=== PATIENT | male | born 1985 | race Caucasian/White ===

== ENCOUNTER 2020-01-28 12:54 | Inpatient (IN) | payer MEDICAID ==
[~2020-01-28] VITALS: Ht 177.8 cm; Wt 88.5 kg
[2020-01-28 13:45] VITALS: BP 102/71; BP 110/68
--- NOTE | 2020-01-28 13:45 | NUR ---
The assessment has been completed. WALE IVORY Time: 1345 A 35 year old MALE admitted to under services of CANDIDO SHIELDS DO. Pt. arrived via ambulatory from [place]. Chief complaint: OPIOID WITHDRAWAL. WALE IVORY
--- NOTE | 2020-01-28 14:01 | NUR ---
PATIENT MEETS [facility]=[id number]. PATIENT IS WANTING TO FOLLOW UP WITH [facility] FOR HIS AFTERCARE PLAN. 

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
[2020-01-28 14:31] LABS: BILIRUBIN NEGATIVE; BLOOD NEGATIVE (NEGATIVE); CLARITY CLEAR (CLEAR); COLOR YELLOW (YELLOW); GLUCOSE NEGATIVE; KETONE NEGATIVE; NITRITE NEGATIVE (NEGATIVE); PH > 9.0 (4.5-8.0)
[2020-01-28 14:32] LABS: BACTERIA TRACE; LEUKO ESTERASE NEGATIVE (NEGATIVE); RBC 0-2 rbc/hpf (0-2); WBC 0-2 wbc/hpf (0-5)
[2020-01-28 14:38] LABS: BASO % 0.3 % (0.0-1.0); EOS % 0.5 % (1.0-4.0); HEMATOCRIT 46.4 % (42.0-52.0); LYMPH # 1.2 10*3/uL (1.3-4.4); LYMPH % 15.8 % (27.0-41.0); MEAN CELL VOLUME 88.2 fl (80.0-94.0); MEAN CORPUSCULAR HGB 28.9 pg (27.0-31.0); MEAN CORPUSCULAR HGB CONC 32.8 g/dl (33.0-37.0); MEAN PLATELET VOLUME 10.3 fl (9.6-12.3); MONO # 0.5 10*3/uL (0.1-1.0); MONO % 5.8 % (3.0-9.0); NEUT % 77.3 % (47.0-73.0); PLATELET COUNT AUTOMATED 284 10*3/uL (130-400); RED BLOOD COUNT 5.26 10*6/uL (4.50-5.90); RED CELL DISTRI WIDTH 13.1 % (0-14.5); WHITE BLOOD COUNT 7.7 10*3/uL (4.8-10.8)
[2020-01-28 15:02] LABS: ALKALINE PHOSPHATASE 58 U/L (45-117); BUN 6 mg/dl (7-24); CHLORIDE 107 mmol/L (98-107); CREATININE 0.73 mg/dL (0.70-1.30); POTASSIUM 3.6 mmol/L (3.5-5.1); SGOT/AST 7 IU/L (3-35); SGPT/ALT 15 U/L (12-78); SODIUM 138 mmol/L (136-145); TOTAL PROTEIN 8.8 gm/dL (6.4-8.2)
[2020-01-28 15:04] LABS: ETHYL ALCOHOL < 3.0 mg/dl (<3)
[2020-01-28 15:11] LABS: URINE AMPHETAMINES < 1000 (1000ng/ml); URINE BARBITURATES < 200 (200ng/ml); URINE BENZODIAZEPINES < 200 (200ng/ml); URINE CANNABINOIDS (THC) < 50 (50ng/ml); URINE COCAINE < 300 (300ng/ml); URINE METHADONE < 300 (300ng/ml); URINE OPIATES < 300 (300ng/ml)
--- NOTE | 2020-01-28 15:20 | NUR ---
MEDICATIONS EFFECTIVE PER PT
[2020-01-28 15:21] LABS: URINE PHENCYCLIDINE < 25 (25ng/ml)
[2020-01-28 16:00] VITALS: BP 114/69
--- NOTE | 2020-01-28 16:15 | NUR ---
Patient displaying withdrawal symptoms, including: achiness, anxiousness, restlessness and agitation, tremors. Patient scores a 6 on the withdrawal scale. Scheduled/PRN medications Benadryl, Motrin & Bentyl provided. Will continue to monitor medication effectiveness.
--- NOTE | 2020-01-28 17:15 | NUR ---
PT STATES MEDICATIONS WERE MOSTLY EFFECTIVE. WILL CONTINUE TO MONITOR.
--- NOTE | 2020-01-28 19:30 | NUR ---
PATIENT SLEEPING AT THIS TIME, EYS CLSOED. NO OVERT DISTRESS NOTED. RESP ARE EASY AND REGULAR. BED IS LOCKED IN LOWEST POSITIONS, CALL LIGHT WITHIN REACH
[2020-01-28 20:00] VITALS: BP 108/88; BP 95/53
--- NOTE | 2020-01-28 21:16 | NUR ---
PATIENT MEDICATED WITH COMFORT MEDS, SEE EMAR, FOR C/O OF WITHDRAWAL SYMPTOMS. WILL CONTINUE TO MONITOR
--- NOTE | 2020-01-28 22:16 | NUR ---
COMFORT MEDS EFFECTIVE
[2020-01-29] VITALS: BP 109/61
--- NOTE | 2020-01-29 02:14 | NUR ---
PATIENT VOICED NO COMPLAINTS AT THIS TIME.
--- NOTE | 2020-01-29 06:23 | NUR ---
PATIENT MEDICATED WITH COMFORT MEDS, SEE EMAR, FOR WITHDRAWAL SYMPTOMS. WILL MONITOR
[2020-01-29 08:00] VITALS: BP 100/62
[2020-01-29 12:00] VITALS: BP 96/67
--- NOTE | 2020-01-29 13:49 | NUR ---
LIBRIUM 25 MG GIVEN FOR C/O ANXIETY, RESTLESSNESS.
--- NOTE | 2020-01-29 15:59 | NUR ---
[facility] STAFF IN TO SEE PATIENT. PATIENT'S AFTERCARE PLAN REMAINS THE SAME. 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
[2020-01-29 16:00] VITALS: BP 105/66
--- NOTE | 2020-01-29 16:04 | NUR ---
ROBAXIN 750 MG, BENTYL 20 MG GIVEN FOR PT C/O ANXIETY, RESTLESS LEGS, AND STOMACH UPSET.
--- NOTE | 2020-01-29 18:35 | NUR ---
VISTARIL AND MOTRIN GIVEN PER MAR FOR C/O GENERALIZED PAIN TO BLE AND ANXIETY.
--- NOTE | 2020-01-29 19:47 | NUR ---
PATIENT RESTING IN BED WITH EYES CLOSED. ARROUSES EASILY. DENIES NEEDS AT THIS TIME. REMINDED TO NOT LEAVE THE FLOOR. BED IN LOWEST POSITION, CALL TORREY CONNOLLY
[2020-01-29 20:00] VITALS: BP 103/64
[2020-01-30] VITALS: BP 104/58
--- NOTE | 2020-01-30 00:01 | NUR ---
MEDICATED WITH PRN TRAZADONE FOR C/O SLEEPLESSNESS. WILL MONITOR
--- NOTE | 2020-01-30 01:00 | NUR ---
PATIENT RESTING IN BED WITH EYES CLOSED. MEDICATION SEEMS EFFECTIVE
[2020-01-30 08:00] VITALS: BP 114/58
--- NOTE | 2020-01-30 08:37 | NUR ---
MOTRIN AND BENTYL GIVEN PER PT REQUEST.
[2020-01-30 12:00] VITALS: BP 114/54
--- NOTE | 2020-01-30 13:00 | NUR ---
[facility] STAFF IN TO SEE PATIENT. PATIENT IS GOING TO FOLLOW UP WITH [facility] FOR OUTPATIENT TREATMENT ON MONDAY, . PATIENT AGREES AND UNDERSTANDS HIS AFTERCARE PLAN. 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
--- NOTE | 2020-01-30 14:46 | NUR ---
ROBAXIN 750 MG GIVEN FOR C/O RESTLESS LEGS.
[2020-01-30 16:00] VITALS: BP 100/53
--- NOTE | 2020-01-30 17:51 | NUR ---
MOTRIN AND BENTYL GIVEN PER PT REQUEST.
--- NOTE | 2020-01-30 19:46 | NUR ---
PATIENT RESTING IN BED SLEEPING. ARROUSES EASILY. DENIES NEEDS. REMINDED NOT TO LEAVE THE FLOOR, VERBALIZED UNDERSTANDING. BED IN LOWEST POSITION, CALL LIGHT IN REACH
[2020-01-30 20:00] VITALS: BP 110/63
--- NOTE | 2020-01-30 22:45 | NUR ---
MEDICATED WITH PRN TRAZADONE FOR C/O SLEEPLESSNESS. WILL MONITOR
--- NOTE | 2020-01-30 23:45 | NUR ---
PATIENT RESTING IN BED WITH EYES CLOSED. MEDICATION SEEMS EFFECTIVE
[2020-01-31] VITALS: BP 108/50
--- NOTE | 2020-01-31 06:53 | NUR ---
IV HEP LOCK REMOVED WITH CATHETER INTACT. NO BLEEDING NOTED
[2020-01-31 06:55] LABS: BASO % 0.5 % (0.0-1.0); EOS # 0.2 10*3/uL (0.0-0.4); EOS % 3.1 % (1.0-4.0); HEMATOCRIT 43.7 % (42.0-52.0); LYMPH # 2.9 10*3/uL (1.3-4.4); LYMPH % 50.3 % (27.0-41.0); MEAN CELL VOLUME 89.2 fl (80.0-94.0); MEAN CORPUSCULAR HGB CONC 32.5 g/dl (33.0-37.0); MEAN PLATELET VOLUME 10.3 fl (9.6-12.3); MONO # 0.4 10*3/uL (0.1-1.0); MONO % 7.1 % (3.0-9.0); NEUT # 2.3 10*3/uL (2.3-7.9); PLATELET COUNT AUTOMATED 251 10*3/uL (130-400); RED CELL DISTRI WIDTH 13.5 % (0-14.5); WHITE BLOOD COUNT 5.8 10*3/uL (4.8-10.8)
[2020-01-31 07:14] LABS: CREATININE 0.75 mg/dL (0.70-1.30)
[2020-01-31 08:00] VITALS: BP 119/74
[2020-01-31] MEDS ORDERED: MOTRIN 600 MG E4 TAB PO (10:17)
[2020-01-31] MEDS ORDERED: ROPINIROLE HYD0.5 MG PO (10:17)
[2020-01-31] MEDS ORDERED: ZOFRAN 4 MG ED2 TAB PO (10:17)
[2020-01-31] MEDS ORDERED: METHOCARBAMOL750 M1 PO (10:17)
[2020-01-31] MEDS ORDERED: ATARAX,VISTARIL50 MG PO (10:17)
--- NOTE | 2020-01-31 11:19 | NUR ---
PT DISCHARGED HOME TO CARE OF SELF, WITH INSTRUCTIONS TO FOLLOW UP WITH PCP IN ONE WEEK AND ADMIT TO [facility] ON MONDAY. PT VERBALIZES HIS UNDERSTANDING OF THIS. INT REMOVED.
== END 2020-01-31 11:47 | disposition home or self-care (01) | DRG 897 ==
LOC: 4E 12:54
PROVIDERS: Registered Nurse; ADMIT Internal Medicine; ATTEND Internal Medicine
DX: F11.23 Opioid dependence with withdrawal (principal); F41.9 Anxiety disorder, unspecified; G25.81 Restless legs syndrome; F17.210 Nicotine dependence, cigarettes, uncomplicated; G47.00 Insomnia, unspecified

== ENCOUNTER → 2020-10-07 | Outpatient (CLI) | payer OTHER ==
[~2020-10-07] MED LIST: ATARAX,VISTARIL50 MG PO; METHOCARBAMOL750 M1 PO; MOTRIN 600 MG E4 TAB PO; ROPINIROLE HYD0.5 MG PO; SEPTDS PO; ZOFRAN 4 MG ED2 TAB PO
== END ==
LOC: WOUNDCARE 01:39
PROVIDERS: ATTEND Nurse Practitioner
DX: T81.89XA Other complications of procedures, not elsewhere classified, initial encounter (principal); L02.413 Cutaneous abscess of right upper limb; L03.113 Cellulitis of right upper limb; F17.210 Nicotine dependence, cigarettes, uncomplicated; Z98.890 Other specified postprocedural states; Y83.8 Other surgical procedures as the cause of abnormal reaction of the patient, or of later complication, without mention of misadventure at the time of the procedure; Y92.238 Other place in hospital as the place of occurrence of the external cause